=== PATIENT | male | born 1995 | race Caucasian/White ===

== ENCOUNTER 2021-07-25 20:14 | Emergency (ER) | payer BC ==
[~2021-07-25] VITALS: Ht 182.9 cm; Wt 72.7 kg
[~2021-07-25 20:14] MED LIST: COLACE 100100 MG/CAP PO; MAGNESIA C1.75 GM/30 PO; MILK OF MA400 MG/5 M PO; MIRALAX PA17 GM/Dose PO; PERC2.5TAB
[2021-07-25 20:20] VITALS: TEMP 98.2
[2021-07-25] MEDS ORDERED: CEPHALEXIN500 M1 PO (21:44)
[2021-07-25 21:56] VITALS: BP 133/79; PULSE 81
[2021-07-26] MEDS ORDERED: BACTRIM DS 8001 TAB PO (10:23)
== END 2021-07-25 21:56 | disposition home or self-care (01) ==
LOC: COL.ER 20:14
DX: S90.851A Superficial foreign body, right foot, initial encounter (principal); U07.1 COVID-19; Z73.0 Burn-out; Z88.0 Allergy status to penicillin; Z23 Encounter for immunization; W45.8XXA Other foreign body or object entering through skin, initial encounter; Y93.02 Activity, running